=== PATIENT | female | born 1995 | race Caucasian/White ===

== ENCOUNTER 2017-09-21 03:24 | Emergency (ER) | payer OTHER ==
[~2017-09-21] VITALS: Ht 154.9 cm; Wt 59.9 kg
[~2017-09-21 03:24] MED LIST: ACETAMINOPHEN-1 EAC1 PO; COLACE100 MG PO; EXCEDRIN MIGRA1 EAC3 PO; HYDROCODON-ACE1 EAC7 PO; IBUPROFEN600 MG PO; IBUPROFEN800 MG PO; IRON325 MG PO; MACROBID100 MG PO; MOTRIN600 MG PO; NAPROSYN500 MG PO; NITROFURANTOIN100 M3 PO; NO HOME MEDS; NORCO 5/3251 TABLET PO; OXYCODONE-APAP1 EACH PO; PRENATAL TABLE1 EAC3 PO; PRILOSEC40 MG PO; SERTRALINE HCL50 MG PO; ZANTAC150 MG PO; ZOLOFT100 MG PO; ZOLOFT50 MG PO
[2017-09-21 04:22] LABS: CHLORIDE 107 mEq/L (99-109); POTASSIUM 3.7 mEq/L (3.7-5.4); SODIUM 142 mEq/L (136-147)
[2017-09-21 04:23] LABS: GLUCOSE 91 mg/dL (70-99)
[2017-09-21 04:27] LABS: CREATININE 0.8 mg/dL (0.6-1.3); GFR ESTIMATE (CALCULATED) > 59 mL/min/
[2017-09-21 04:28] LABS: UREA NITROGEN (BUN) 7 mg/dL (9-23)
[2017-09-21] MEDS ORDERED: FLEXERIL10 MG PO (04:42)
[2017-09-21 05:02] VITALS: BP 106/66
== END 2017-09-21 05:03 | disposition home or self-care (01) ==
LOC: EME 03:24
PROVIDERS: Emergency Medicine
DX: M54.32 Sciatica, left side (principal); R25.2 Cramp and spasm; G43.909 Migraine, unspecified, not intractable, without status migrainosus; F41.9 Anxiety disorder, unspecified; F32.9 Major depressive disorder, single episode, unspecified; Z87.19 Personal history of other diseases of the digestive system; Z88.2 Allergy status to sulfonamides; Z88.0 Allergy status to penicillin; Z88.1 Allergy status to other antibiotic agents
CPT/HCPCS: 80048; 93005; 99281; 99284; J1885

== ENCOUNTER 2017-11-28 20:52 | Emergency (ER) | payer OTHER ==
[~2017-11-28] VITALS: Ht 154.9 cm; Wt 61.9 kg
[~2017-11-28 20:52] MED LIST changes: +FLEXERIL10 MG PO
[2017-11-28 22:05] LABS: HEMATOCRIT 35.6 % (36.0-46.0); HEMOGLOBIN 12.4 G/DL (11.9-15.5); MCH 31.5 PG (29.0-34.0); MCHC 34.8 G/DL (30.0-36.0); MCV 90.4 FL (83-99); PLATELET COUNT 252 K/uL (156-360); RBC DIS.WIDTH-CV 12.5 % (11.8-14.6); RBC DIS.WIDTH-SD 41.7 % (39-53); RED BLOOD COUNT 3.94 M/uL (3.80-5.20); WHITE BLOOD COUNT 10.7 K/uL (4.1-10.2)
[2017-11-28] MEDS ORDERED: SERTRALINE HCL100 MG PO (22:08)
[2017-11-28 22:16] LABS: ALBUMIN 3.9 g/dL (3.2-4.8); CHLORIDE 107 mEq/L (99-109); POTASSIUM 4.6 mEq/L (3.7-5.4); SODIUM 140 mEq/L (136-147)
[2017-11-28 22:18] LABS: GLUCOSE 83 mg/dL (70-99); TOTAL PROTEIN 6.6 g/dL (6.4-8.3)
[2017-11-28 22:20] LABS: TOTAL BILIRUBIN 0.4 mg/dL (0.0-1.0)
[2017-11-28 22:22] LABS: ALKALINE PHOSPHATASE 58 IU/L (3-129); CREATININE 0.7 mg/dL (0.6-1.3); GFR ESTIMATE (CALCULATED) > 59 mL/min/
[2017-11-28 22:22] LABS: APPEARANCE CLOUDY ((CLEAR)); BILIRUBIN NEGATIVE; BLOOD NEGATIVE; COLOR YELLOW ((YELLOW)); GLUCOSE (STRIP) NEGATIVE; KETONES NEGATIVE; LEUKOCYTES NEGATIVE; NITRITE NEGATIVE; PROTEIN (STRIP) NEGATIVE; SPECIFIC GRAVITY 1.023 (1.000-1.030)
[2017-11-28 22:23] LABS: AST (GOT) 16 IU/L (2-34); UREA NITROGEN (BUN) 10 mg/dL (9-23)
[2017-11-28 22:25] LABS: ALT (GPT) 10 IU/L (3-49)
[2017-11-28 22:32] LABS: QUANTITATIVE HCG < 4.0 MIU/ML
[2017-11-28 22:49] LABS: AMORPHOUS URATES CRYSTALS 3+; BACTERIA NONE SEEN /HPF; EPITHELIAL CELLS 1+ /HPF; MUCUS NONE SEEN /LPF; RED BLOOD CELLS 0-5 /HPF (0-5); UCUL ADDED? NO; WHITE BLOOD CELLS 0-5 /HPF (0-5)
[2017-11-29] MEDS ORDERED: MOTRIN800 MG PO (00:03)
[2017-11-29] MEDS ORDERED: ZOFRAN ODT4 MG PO (00:03)
[2017-11-29 00:07] VITALS: BP 114/86
== END 2017-11-29 00:09 | disposition home or self-care (01) ==
LOC: RME 20:52 → EME 20:52 → RME 11-29 00:09
DX: N83.01 Follicular cyst of right ovary (principal); R11.0 Nausea; F32.9 Major depressive disorder, single episode, unspecified; F41.9 Anxiety disorder, unspecified; Z88.2 Allergy status to sulfonamides; Z88.0 Allergy status to penicillin; Z97.5 Presence of (intrauterine) contraceptive device
CPT/HCPCS: 74177; 80053; 81003; 84702; 85027; 99281; 99284; J7030